=== PATIENT | male | born 1990 | race Caucasian/White ===

== ENCOUNTER 2016-11-30 05:35 | Emergency (ER) | payer BC ==
[~2016-11-30] VITALS: Ht 175.3 cm; Wt 61.2 kg
[2016-11-30 05:48] VITALS: BP 127/73
--- NOTE | 2016-11-30 05:53 | NUR ---
AMBULATED TO ER BED 9
--- NOTE | 2016-11-30 05:54 | NUR ---
26 Y/O M W/C/O PAIN AND SWELLING TO R BOTTOM TOOTH X 2 DAYS. PT DENIES ANY FEVER. NO OTHER S/S OF DISTRESS NOTED. ER MD MADE AWARE.
--- NOTE | 2016-11-30 06:01 | NUR ---
Patient being evaluated by physician at bedside.
[2016-11-30 06:12] VITALS: BP 127/73
--- NOTE | 2016-11-30 06:12 | NUR ---
Patient discharged with v/s stable. Written and verbal after care instructions given and explained. Patient alert, oriented and verbalized understanding of instructions. Ambulatory with steady gait. All questions addressed prior to discharge. ID band removed. Patient advised to follow up with DENTIST. Rx of AUGMENTIN AND NAPROXEN given. Patient educated on indication of medication including possible reaction and side effects. Opportunity to ask questions provided and answered.
== END 2016-11-30 06:12 | disposition home or self-care (01) ==
LOC: MED 05:35
DX: K04.7 Periapical abscess without sinus (principal)
CPT/HCPCS: 99283